=== PATIENT | female | born 1970 | race African-American/Black ===

== ENCOUNTER 2023-10-05 15:46 | Emergency (ER) | payer OTHER ==
[~2023-10-05] VITALS: Ht 172.7 cm; Wt 60.0 kg
[2023-10-05 15:48] VITALS: BP 178/100; PULSE 68; RESP 20; TEMP 98; O2SAT 100
[2023-10-05] MEDS ORDERED: P20 MT (16:28)
[2023-10-05] MEDS ORDERED: DIPH25CA83 MT (16:28)
[2023-10-05] MEDS ORDERED: FAMO-287 MT (16:28)
[2023-10-05] MEDS ORDERED: EPIN0.3P3 IM (16:31)
[2023-10-05] MEDS: FAMOTIDINE 20MG TABLET PO ONE (16:46)
[2023-10-05] MEDS: PREDNISONE 20MG TABLET PO ONE (16:46)
== END 2023-10-05 16:45 | disposition home or self-care (01) ==
LOC: ER 15:46
DX: T78.40XA Allergy, unspecified, initial encounter (principal); X58.XXXA Exposure to other specified factors, initial encounter
CPT/HCPCS: 99283; 81025; J7512